=== PATIENT | female | born 1975 | race Caucasian/White ===

== ENCOUNTER 2017-01-03 20:15 | Inpatient (IN) | payer BC ==
[~2017-01-03] VITALS: Ht 154.9 cm; Wt 83.9 kg
[~2017-01-03 20:15] MED LIST: BACLOFEN20 MG PO; CARBAMAZEPINE200 MG PO; CLONAZEPAM0.5 MG PO; FLEXERIL10 MG PO; FLONASE16 G1 NS; Flonase BOTH NARES; IBUPROFEN800 MG PO; METFORMIN HCL1000 MG PO; ONDANSETRON ODT4 MG PO; OXYCODONE HCL5 MG PO; PANTOPRAZOLE SO40 MG PO; PHENERGAN12.5 M1 PO; PROTONIX40 MG PO; PYRIDIUM100 MG PO; Proventil,Ventolin H IH; REGLAN10 MG PO; SINGULAIR10 MG PO; TRAMADOL HCL50 MG PO; TYLENOL EXTRA500 MG PO; YAZ1 TABLET PO
[2017-01-03 21:17] LABS: HEMATOCRIT 37.9 % (36.0-46.0); MCH 24.1 PG (29.0-34.0); MCHC 31.7 G/DL (30.0-36.0); MCV 76.1 FL (83-99); MEAN PLAT.VOLUME 9.2 uM^3 (9.5-12.4); PLATELET COUNT 357 K/uL (156-360); RBC DIS.WIDTH-CV 17.5 % (11.8-14.6); RBC DIS.WIDTH-SD 47.8 % (39-53); RED BLOOD COUNT 4.98 M/uL (3.80-5.20); WHITE BLOOD COUNT 17.2 K/uL (4.1-10.2)
[2017-01-03 21:37] LABS: CHLORIDE 107 mEq/L (99-109); POTASSIUM 3.8 mEq/L (3.7-5.4); SODIUM 137 mEq/L (136-147)
[2017-01-03 21:38] LABS: GLUCOSE 105 mg/dL (70-99)
[2017-01-03 21:40] LABS: ANION GAP 7 MEQ/L (2-14)
[2017-01-03 21:42] LABS: GFR ESTIMATE (CALCULATED) > 59 mL/min/
[2017-01-03 21:43] LABS: UREA NITROGEN (BUN) 9 mg/dL (9-23)
[2017-01-03 21:47] LABS: TROP-I INTERPRETATION NEGATIVE; TROPONIN-I < 0.01 ng/mL (0.0-0.30)
[2017-01-04 00:31] LABS: TOTAL BILIRUBIN 0.3 mg/dL (0.0-1.0)
[2017-01-04 00:32] LABS: ALKALINE PHOSPHATASE 83 IU/L (3-129)
[2017-01-04 00:35] LABS: DIRECT BILIRUBIN 0.1 mg/dL (0.0-0.3)
[2017-01-04 00:36] LABS: LIPASE 14 U/L (1.0-51.0)
[2017-01-04 08:03] VITALS: BP 114/70
[2017-01-04] MEDS ORDERED: YAZ 28 TABLET1 EACH PO (10:23)
[2017-01-04] MEDS ORDERED: DITROPAN5 MG PO (10:24)
[2017-01-04] MEDS ORDERED: FLONASE16 G1 BOTH NARES (10:25)
[2017-01-04] MEDS ORDERED: PROAIR HFA8.5 GM IH (10:25)
[2017-01-04 11:34] LABS: HEMATOCRIT 33.3 % (36.0-46.0); MCH 24.6 PG (29.0-34.0); MCHC 32.1 G/DL (30.0-36.0); MCV 76.6 FL (83-99); MEAN PLAT.VOLUME 9.1 uM^3 (9.5-12.4); PLATELET COUNT 295 K/uL (156-360); RBC DIS.WIDTH-CV 17.6 % (11.8-14.6); RBC DIS.WIDTH-SD 48.9 % (39-53); RED BLOOD COUNT 4.35 M/uL (3.80-5.20); WHITE BLOOD COUNT 17.9 K/uL (4.1-10.2)
[2017-01-04 11:43] LABS: INTER. NORMALIZED RATIO 1.1; PROTHROMBIN TIME 10.7 (9.2-11.2)
[2017-01-04 12:16] LABS: ANION GAP 9 MEQ/L (2-14); CHLORIDE 115 MEQ/L (99-109); GFR ESTIMATE (CALCULATED) > 59 mL/min/; GLUCOSE 124 mg/dL (70-99); POTASSIUM 3.7 MEQ/L (3.7-5.4); SAMPLE HEMOLYSIS CHECK 0; SAMPLE ICTERIC CHECK 0; SAMPLE LIPEMIA CHECK 0; SODIUM 142 MEQ/L (136-147); UREA NITROGEN (BUN) 6 mg/dL (9-23)
[2017-01-04 15:19] VITALS: BP 137/84
[2017-01-04 17:33] LABS: APPEARANCE CLEAR/COLORLESS
[2017-01-04 17:37] LABS: RED CELL AREA COUNTED 18; RED CELL COUNT 20 /MM^3 (0-1); RED CELL DILUTION 1; WBC AREA COUNTED 18; WBC DILUTION 1; WHITE CELL COUNT 0 /MM^3 (0-5); WHITE CELL RAW COUNT 0
[2017-01-04 17:45] LABS: CSF EOSINOPHILS ND % (0-25); MONO RAW COUNT ND; MONONUCLEAR WBC'S ND % (50-90); POLY RAW COUNT ND; POLYNUCLEAR WBC'S ND % (0-3)
[2017-01-04 18:00] LABS: APPEARANCE (RECHECK) CLEAR/COLORLESS; CSF TUBE NUMBER (RECHECK) TUBE #1
[2017-01-04 18:04] LABS: RED CELL AREA COUNTED 18; RED CELL COUNT (RECHECK) 269 /MM^3 (0-1); RED CELL DILUTION 1
[2017-01-04 21:14] VITALS: BP 115/70
[2017-01-05 01:01] VITALS: BP 104/58
[2017-01-05 03:14] VITALS: BP 124/76
[2017-01-05 04:58] LABS: D-DIMER ELISA 0.53 mg/L FEU (< 0.57)
[2017-01-05 05:10] LABS: TROP-I INTERPRETATION NEGATIVE; TROPONIN-I < 0.01 ng/mL (0.0-0.30)
[2017-01-05 07:41] LABS: HEMATOCRIT 30.5 % (36.0-46.0); MCH 24.4 PG (29.0-34.0); MCHC 31.5 G/DL (30.0-36.0); MCV 77.4 FL (83-99); PLATELET COUNT 300 K/uL (156-360); RBC DIS.WIDTH-CV 18.1 % (11.8-14.6); RBC DIS.WIDTH-SD 50.6 % (39-53); RED BLOOD COUNT 3.94 M/uL (3.80-5.20); WHITE BLOOD COUNT 12.2 K/uL (4.1-10.2)
[2017-01-05 07:47] VITALS: BP 111/55
[2017-01-05 08:08] LABS: ANION GAP 7 MEQ/L (2-14); CHLORIDE 109 MEQ/L (99-109); GFR ESTIMATE (CALCULATED) > 59 mL/min/; POTASSIUM 3.7 MEQ/L (3.7-5.4); SAMPLE HEMOLYSIS CHECK 0; SAMPLE ICTERIC CHECK 0; SAMPLE LIPEMIA CHECK 0; SODIUM 138 MEQ/L (136-147); UREA NITROGEN (BUN) 5 mg/dL (9-23)
[2017-01-05 08:09] LABS: GLUCOSE 83 mg/dL (70-99)
[2017-01-05 11:39] VITALS: BP 100/55
[2017-01-05] MEDS ORDERED: DURICEF1 GM PO (12:39)
== END 2017-01-05 14:53 | disposition home or self-care (01) | DRG 872 ==
LOC: EME 20:15 → EDOF 01-04 03:13 → 2EAST 01-04 14:52
PROVIDERS: Emergency Medicine; Hospitalist; Internal Medicine
PROC: 009U3ZX Drainage of Spinal Canal, Percutaneous Approach, Diagnostic (ICD-10-PCS; principal; 2017-01-04)
PROC: 009U3ZX Drainage of Spinal Canal, Percutaneous Approach, Diagnostic (ICD-10-PCS; 2017-01-04)
DX: A41.9 Sepsis, unspecified organism (principal); L03.811 Cellulitis of head [any part, except face]; I88.9 Nonspecific lymphadenitis, unspecified; E86.0 Dehydration; F31.9 Bipolar disorder, unspecified; J45.909 Unspecified asthma, uncomplicated; E28.2 Polycystic ovarian syndrome; G43.909 Migraine, unspecified, not intractable, without status migrainosus; F41.9 Anxiety disorder, unspecified; E66.9 Obesity, unspecified; Z87.891 Personal history of nicotine dependence; Z68.34 Body mass index [BMI] 34.0-34.9, adult; Z91.040 Latex allergy status; Z91.041 Radiographic dye allergy status; Z88.0 Allergy status to penicillin; Z88.1 Allergy status to other antibiotic agents
CPT/HCPCS: 71010; 76705; 77002; 77003; 80048; 80076; 80202; 82945; 83605; 83690; 84157; 84484; 85027; 85379; 85610; 86617 90; 86618 90; 87040; 87070; 87205; 87651 90; 89051; 93005; 99281; 99283; J0696; J0780; J1100; J1200; J1644; J1956; J2060; J2270; J2405; J3370; J7030; J7050; S0028

== ENCOUNTER 2017-01-12 06:33 | Emergency (ER) | payer BC ==
[~2017-01-12] VITALS: Ht 154.9 cm; Wt 81.8 kg
[~2017-01-12 06:33] MED LIST changes: +DITROPAN5 MG PO; +DURICEF1 GM PO; +FLONASE16 G1 BOTH NARES; +PROAIR HFA8.5 GM IH; +YAZ 28 TABLET1 EACH PO
[2017-01-12 07:14] VITALS: BP 139/74
== END 2017-01-12 07:17 | disposition home or self-care (01) ==
LOC: EME 06:33
DX: L27.1 Localized skin eruption due to drugs and medicaments taken internally (principal); T36.1X5A Adverse effect of cephalosporins and other beta-lactam antibiotics, initial encounter; B37.3 Candidiasis of vulva and vagina; J45.909 Unspecified asthma, uncomplicated; F32.9 Major depressive disorder, single episode, unspecified; Z87.891 Personal history of nicotine dependence; Z88.0 Allergy status to penicillin
CPT/HCPCS: 99281; 99284

== ENCOUNTER 2017-03-19 09:41 | Emergency (ER) | payer BC ==
[~2017-03-19] VITALS: Ht 157.5 cm; Wt 82.5 kg
[2017-03-19 10:25] LABS: HEMATOCRIT 40.3 % (36.0-46.0); MCH 27.8 PG (29.0-34.0); MCHC 32.8 G/DL (30.0-36.0); MEAN PLAT.VOLUME 9.1 uM^3 (9.5-12.4); PLATELET COUNT 274 K/uL (156-360); RBC DIS.WIDTH-CV 17.4 % (11.8-14.6); RBC DIS.WIDTH-SD 54.2 % (39-53); RED BLOOD COUNT 4.74 M/uL (3.80-5.20)
[2017-03-19 10:34] LABS: CHLORIDE 109 mEq/L (99-109); POTASSIUM 4.4 mEq/L (3.7-5.4); SODIUM 139 mEq/L (136-147)
[2017-03-19 10:36] LABS: GLUCOSE 114 mg/dL (70-99)
[2017-03-19 10:37] LABS: ANION GAP 11 MEQ/L (2-14)
[2017-03-19 10:38] LABS: TOTAL BILIRUBIN 0.1 mg/dL (0.0-1.0)
[2017-03-19 10:39] LABS: ALKALINE PHOSPHATASE 63 IU/L (3-129)
[2017-03-19 10:40] LABS: GFR ESTIMATE (CALCULATED) > 59 mL/min/
[2017-03-19 10:41] LABS: UREA NITROGEN (BUN) 20 mg/dL (9-23)
[2017-03-19 10:51] LABS: QUANTITATIVE HCG < 4.0 MIU/ML
[2017-03-19 11:18] LABS: ADD MIUA? YES; BILIRUBIN NEGATIVE; BLOOD NEGATIVE; COLOR YELLOW ((YELLOW)); GLUCOSE (STRIP) NEGATIVE; KETONES NEGATIVE; LEUKOCYTES NEGATIVE; NITRITE NEGATIVE; PROTEIN (STRIP) NEGATIVE; SPECIFIC GRAVITY 1.027 (1.000-1.030); UROBILINOGEN 0.2 MG/DL (0.2-1.0)
[2017-03-19 11:22] LABS: BACTERIA RARE /HPF; EPITHELIAL CELLS RARE /HPF; MUCUS TRACE /LPF; RED BLOOD CELLS 0-5 /HPF (0-5); UCUL ADDED? NO; WHITE BLOOD CELLS 0-5 /HPF (0-5)
[2017-03-19 14:07] LABS: LIPASE 20 U/L (1.0-51.0)
[2017-03-19] MEDS ORDERED: CARAFATE1 GM PO (14:50)
[2017-03-19] MEDS ORDERED: ZOFRAN ODT4 MG PO (14:50)
[2017-03-19 15:10] VITALS: BP 104/65
== END 2017-03-19 15:12 | disposition home or self-care (01) ==
LOC: EME 09:41
DX: R10.11 Right upper quadrant pain (principal); J45.909 Unspecified asthma, uncomplicated; Z86.19 Personal history of other infectious and parasitic diseases; Z87.891 Personal history of nicotine dependence; Z88.1 Allergy status to other antibiotic agents; Z91.040 Latex allergy status; Z88.6 Allergy status to analgesic agent; Z91.041 Radiographic dye allergy status; Z88.0 Allergy status to penicillin
CPT/HCPCS: 76705; 80053; 81003; 83690; 84702; 85027; 99281; 99284; J3010

== ENCOUNTER 2017-04-22 07:19 | Day surgery (SDC) | payer BC ==
[~2017-04-22] VITALS: Ht 157.5 cm; Wt 80.7 kg
[~2017-04-22 07:19] MED LIST changes: +ASCORBIC ACID500 M1 PO; +BREO ELLIPTA I1 EACH IH; +CARAFATE1 GM PO; +ZOFRAN ODT4 MG PO
[2017-04-22 08:15] LABS: HEMATOCRIT 38.9 % (36.0-46.0); MCV 86.3 FL (83-99)
[2017-04-22 08:23] VITALS: BP 115/72
[2017-04-22] MEDS ORDERED: HYDROCODON-ACE1 EA11 PO (10:22)
[2017-04-22 11:49] VITALS: BP 121/71
[2017-04-22 12:40] VITALS: BP 110/64
[2017-04-22 14:00] VITALS: BP 110/60
== END 2017-04-22 14:25 | disposition home or self-care (01) ==
LOC: SDC 07:19
PROVIDERS: Surgery
PROC: 0FT44ZZ Resection of Gallbladder, Percutaneous Endoscopic Approach (ICD-10-PCS; principal; 2017-04-22)
DX: K80.10 Calculus of gallbladder with chronic cholecystitis without obstruction (principal); E66.9 Obesity, unspecified; Z68.32 Body mass index [BMI] 32.0-32.9, adult; D50.8 Other iron deficiency anemias; K44.9 Diaphragmatic hernia without obstruction or gangrene; Z87.891 Personal history of nicotine dependence
CPT/HCPCS: 85014; 85018; 88304; 93005; J0131; J0330; J1100; J1170; J1644; J2250; J2405; J2710; J2765; J3010; S0020